=== PATIENT | female | born 1950 | race Caucasian/White ===

== ENCOUNTER 2021-04-07 23:16 | Observation (INO) ==
[2021-04-08] MEDS ORDERED: MORPHINE 2 MG/1 ML SYRINGE IV STA (01:05)
[2021-04-08] MEDS ORDERED: ONDANSETRON 4 MG/2 ML VIAL IV ONE (01:05)
[2021-04-08 01:42] LABS: Basophils % 0.5 % (0.0-0.8); Eosinophils # 0.2 10*3/uL (0.0-0.87); Eosinophils % 2.5 % (0.00-10.9); Hematocrit 43.3 VOL% (35.7-47.0); Hemoglobin 14.1 GM/DL (12.0-16.0); Immature Granulocytes % 0.3 %; Immature Granulocytes Absolute 0.02 #; Lymphocytes # 2.3 10*3/uL (1.4-4.0); Lymphocytes % 29.3 % (21.3-54.2); Mean Corpuscular HGB Conc 32.6 GM/DL (32-36); Mean Corpuscular Volume 89.6 FL (87-102); Mean Platelet Volume 10.3 FL (9.6-12.0); Monocytes % 11.1 % (1.7-12.7); Neutrophils % 56.3 % (38.7-73.9); Platelet Count 199 T/CUMM (130-400); Red Blood Count 4.83 MC/CUMM (3.8-5.5); Red Cell Distribution Width 14.6 % (9.3-17.3)
[2021-04-08 02:03] LABS: Alanine Aminotransferase 24 U/L (13-56); Albumin 3.5 G/DL (3.4-5.0); Alkaline Phosphatase 133 U/L (45-117); Aspartate Amino Transferase 18 U/L (0-37); Bilirubin,Total < 0.39 MG/DL (0.20-1.00); Blood Urea Nitrogen 23 MG/DL (7-18); Calcium 9.3 MG/DL (8.5-10.1); Carbon Dioxide 25 MMOL/L (21-32); Estimated Glom Filtration Rate 84 ML/MIN; Glucose 130 MG/DL (74-106); Osmolality,Calculated 275.1 MOS/KG (273-304); Potassium 4.1 MMOL/L (3.5-5.1); Sodium 135 MMOL/L (136-145); Total Protein 7.7 G/DL (6.4-8.2)
[2021-04-08] MEDS ORDERED: PIPERACILLIN/TAZOBACTAM 3,375 MG in SODIUM CHLORIDE 0.9% 100 ML IV STA (02:39)
[2021-04-08 06:53] LABS: Bacteria,Urine Occasional /HPF (Few); Bilirubin,Urine Negative (Negative); Blood, Urine Negative (Negative); Glucose,Urine (UA) Negative (Negative); Ketones,Urine Negative (Negative); Mucus,Urine Occasional /LPF (Occasional); Nitrite,Urine Negative (Negative); Protein,Urine Negative; RBC,Urine 1 /HPF (0-4); Squamous Epithelial Cell,Urine Occasional /HPF (0-10); Urine Appearance CLEAR (Clear); Urine Color Yellow (Yellow); Urine Urobilinogen < 2.0 EU/DL (0.2-1.0)
[2021-04-08] MEDS ORDERED: propofoL 200 MG/20 ML VIAL IV ONE (07:16)
[2021-04-08] MEDS ORDERED: LIDOCAINE 2% 5 ML VIAL ONE (07:16)
[2021-04-08] MEDS ORDERED: fentaNYL 100 MCG/2 ML VIAL ONE (07:16)
[2021-04-08] MEDS ORDERED: ROCURONIUM 50 MG/5 ML VIAL IV ONE (07:16)
[2021-04-08] MEDS ORDERED: SUCCINYLCHOLINE 200 MG/10 ML VIAL ONE (07:16)
[2021-04-08] MEDS ORDERED: BUPIVACAINE MPF 0.25% 30 ML VIAL ONE (07:29)
[2021-04-08] MEDS ORDERED: LIDOCAINE 1%/EPI INJ 20 ML VIAL ONE (07:29)
[2021-04-08] MEDS ORDERED: TISSUE ADHESIVE 1 EACH APPLICATOR TOP ONE (07:29)
[2021-04-08] MEDS ORDERED: PHENYLEPHRINE 1 MG/10 ML SYRINGE IV ONE (09:03)
[2021-04-08] MEDS ORDERED: DEXAMETHASONE 4 MG/1 ML VIAL ONE (09:03)
[2021-04-08] MEDS ORDERED: ONDANSETRON 4 MG/2 ML VIAL ONE (09:03)
[2021-04-08] MEDS ORDERED: ETOMIDATE 40 MG/20 ML VIAL IV ONE (09:06)
[2021-04-08] MEDS ORDERED: ACETAMINOPHEN INJ 1,000 MG/100 ML VIAL IV ONE (09:08)
[2021-04-08] MEDS ORDERED: SUGAMMADEX 200 MG/2 ML VIAL IV ONE (09:10)
[2021-04-08] MEDS ORDERED: KETOROLAC 30 MG/1 ML VIAL ONE (09:13)
[2021-04-08] MEDS ORDERED: ACETAMINOPHEN 325 MG TABLET PO PRN ×2 (09:58→12:55)
[2021-04-08] MEDS ORDERED: ALBUTEROL/IPRATROPIUM 3 ML NEB RESP TX PRN (09:58)
[2021-04-08] MEDS ORDERED: BISACODYL 5 MG TABLET PO PRN (09:58)
[2021-04-08] MEDS ORDERED: ONDANSETRON 4 MG/2 ML VIAL IV PRN ×2 (09:58→12:55)
[2021-04-08] MEDS ORDERED: KETOROLAC 30 MG/1 ML VIAL IV PRN (09:58)
[2021-04-08] MEDS ORDERED: HYDROmorphone 2 MG/1 ML VIAL IV PRN (12:55)
[2021-04-08] MEDS ORDERED: PIPERACILLIN/TAZOBACTAM 3,375 MG in SODIUM CHLORIDE 0.9% 100 ML IV SCH (12:55)
[2021-04-08] MEDS ORDERED: SODIUM CHLORIDE 0.9% 1,000 ML IV SCH (12:55)
[2021-04-08] MEDS ORDERED: PANTOPRAZOLE 40 MG VIAL IV SCH (12:55)
[2021-04-08] MEDS: LACTATED RINGERS 1,000 ML IV SCH (16:45)
[2021-04-08] MEDS: HYDROmorphone 2 MG/1 ML VIAL IV PRN (18:34)
[2021-04-09] MEDS: HYDROmorphone 2 MG/1 ML VIAL IV PRN (03:04)
[2021-04-09 06:49] LABS: Basophils % 0.2 % (0.0-0.8); Eosinophils % 0.3 % (0.00-10.9); Hematocrit 40.7 VOL% (35.7-47.0); Hemoglobin 12.9 GM/DL (12.0-16.0); Immature Granulocytes % 0.4 %; Immature Granulocytes Absolute 0.05 #; Lymphocytes % 17.5 % (21.3-54.2); Mean Corpuscular HGB Conc 31.7 GM/DL (32-36); Mean Corpuscular Volume 92.1 FL (87-102); Mean Platelet Volume 10.4 FL (9.6-12.0); Monocytes % 5.6 % (1.7-12.7); Platelet Count 195 T/CUMM (130-400); Red Blood Count 4.42 MC/CUMM (3.8-5.5); Red Cell Distribution Width 14.5 % (9.3-17.3); White Blood Count 11.2 T/CUMM (4-12)
[2021-04-09 07:14] LABS: Albumin 2.9 G/DL (3.4-5.0); Bilirubin,Total 0.7 MG/DL (0.20-1.00); Calcium 8.8 MG/DL (8.5-10.1); Osmolality,Calculated 276.7 MOS/KG (273-304); Potassium 4.1 MMOL/L (3.5-5.1)
[2021-04-09] MEDS ORDERED: PANTOPRAZOLE 40 MG TABLET PO SCH (09:00)
[2021-04-09 11:42] VITALS: BP 113/56
[2021-04-09] MEDS: LACTATED RINGERS 1,000 ML IV SCH ×2 (13:03→13:05)
== END 2021-04-09 12:30 | disposition home or self-care (01) ==
LOC: N.ED 23:16 → INTOOBSV 04-08 02:41 → N.EDINP 04-08 02:41 → N.5E 04-08 08:17
PROVIDERS: ADMIT Surgery; ATTEND Surgery